=== PATIENT | male | born 1970 | race Caucasian/White ===

== ENCOUNTER 2024-11-14 16:13 | Emergency (ER) | payer OTHER, SELFPAY ==
[2024-11-14 16:22] VITALS: BP 165/95
[2024-11-14 16:50] LABS: % Basophils 1.2 % (0-2); % Eosinophils 1.5 % (0-6); % Immature Granulocytes 0.2 % (0-0.5); % Lymphocytes 23.8 % (20.5-51.1); % Monocytes 8.6 % (1.7-9.3); % Neutrophils 64.7 % (42.2-75.2); Absolute Basophils 0.1 10^3/uL (0-0.2); Absolute Eosinophils 0.1 10^3/uL (0-0.7); Absolute Lymphocytes 1.4 10^3/uL (1.2-3.4); Absolute Monocytes 0.5 10^3/uL (0.1-0.6); Absolute Neutrophils 3.9 10^3/uL (1.4-6.5); Hematocrit 42.2 % (39.0-52.0); Hemoglobin 14.7 g/dL (13.0-18.0); Mean Corp Hgb Conc. 34.8 g/dL (33.0-37.0); Mean Platelet Volume 10.1 fL (7.4-10.4); Nucleated Red Blood Cells % 0 % (-); Platelet Count 302 10^3/uL (130-400); Red Blood Cell Count 4.74 10^6/uL (4.70-6.10); Red Cell Dist. Width 12.5 % (11.5-14.5)
[2024-11-14 17:03] LABS: ALT (SGPT) 49 U/L (0-50); AST (SGOT) 28 U/L (17-59); Albumin 4.9 g/dl (3.5-5.0); Alkaline Phosphatase 83 U/L (38-126); Blood Urea Nitrogen 13 mg/dl (9-20); Calcium 9.8 mg/dl (8.4-10.2); Carbon Dioxide 20 mmol/L (22-30); Chloride 105 mmol/L (98-107); Glucose 92 mg/dl (70-99); Potassium 4.1 mmol/L (3.5-5.1); Sodium 139 mmol/L (135-145); Total Bilirubin 0.7 mg/dl (0.2-1.3); Total Protein 7.4 g/dl (6.3-8.2); eGFR > 60.00
[2024-11-14 17:15] LABS: Troponin I < 0.012 ng/ml
[2024-11-14 17:33] LABS: TSH Reflex To Free T4 1.46 uIU/ml (0.47-4.68)
[2024-11-14 22:35] VITALS: BP 147/98
[2024-11-14 22:37] LABS: Troponin I < 0.012 ng/ml
--- NOTE | 2024-11-14 22:50 | ED.GENMED ---
History of Present Illness
General
Chief Complaint: Chest Pain
Source: patient
Exam Limitations: none
Time Seen by Provider: 11/14/24 22:16
History of Present Illness
History of Present Illness:
This is a 54yo male who presents after he had fell out and lives at lunch with a coworker. He states he had a couple beers and a burger and fries. He states he just started to feel weird and like he needed to drink a soda. He stated he felt shaky
and his palms felt sweaty. He states he really did not have much chest discomfort but just did not feel right. States his hands were sweaty. Synechia persisted. Drank a little bit so to see if it go away. States he then drove home with the
windows down and dropped his coworker often and picker feeder his and came to the hospital. States he is not sure if he had anxiety attack or not. States that yesterday at work he had a lot of stress dealing with a [place]. He took an edible last
night. He is not sure if this is related. He currently feels much better. Denies fevers or palpitations. No syncope. Denies any abdominal symptoms during the event. Not a smoker. Patient states he feels much improved. Still feels little bit
chest tightness across but is not sure if he is anxious. The patient admits that symptoms started at 3:00.
Past History
Past History
ED Past Medical History: Other (Kidney stones) and Other (Anxiety)
ED Past Surgical History: Orthopedic
Social History
Tobacco: Former smoker
Alcohol: Occasional
Family History
Family History: Other (Mother with coronary disease and stents)
Phy Exam
Physical Exam
Physical Exam:
CONSTITUTIONAL Patient alert and oriented to person, place and time. Well-appearing. Vital signs reviewed.
HEAD atraumatic, normocephalic.
EYES eyelids normal to inspection, Extraocular muscles intact, Conjunctiva normal, Sclera normal.
NECK normal range of motion, Trachea midline, no jugular venous distention.
RESPIRATORY CHEST No respiratory distress noted, Chest expansion equal, Bilateral breath sounds clear.
CARDIOVASCULAR regular rate and rhythm, Heart sounds normal.
ABDOMEN abdomen nontender, Bowel sounds normal. No distention.
BACK normal inspection, no obvious deformities
UPPER EXTREMITY range of motion normal, Motor strength normal, no cyanosis, no edema.
LOWER EXTREMITY range of motion normal, Motor strength normal, no cyanosis, no edema.
NEURO Speech normal, No focal motor deficits, Dawson coma scale 15, Memory normal, Cranial Nerves intact to screening exam.
SKIN skin warm, dry, and normal in color.
Scores
Heart Score for Chest Pain Patients
STEMI patient?: No
History: Slightly or Non-Suspicious
ECG: Normal
Age: >45 - <65 years
Risk Factors: 1 or 2 Risk Factors
Troponin: </= Normal Limit
Heart Score for Chest Pain Patients: 2
Heart Score Risk: 2.5% MACE over next 6 weeks
Course
Orders/Labs/Results
Orders:
Orders
11/14/24 16:15
Electrocardiogram (*1) Urgent
Reason for Study: Chest Pain
EKG- Treatment ONCE
11/14/24 16:39
Complete Blood Count/With Diff Urgent
Comprehensive Metabolic Panel Urgent
TSH Reflex To Free T4 Urgent
Troponin I Urgent
11/14/24 20:50
ECG [Electrocardiogram (*1)] Urgent
Reason for Study: Chest Pain
EKG- Treatment ONCE
11/14/24 21:58
CR Chest - 2 Views Urgent
Comment:
Reason For Exam: cp
11/14/24 22:07
Troponin I Urgent
Abnormal Lab Results
11/14/24
16:39
Carbon Dioxide 20 L mmol/L
(22-30)
11/14/24 16:39
11/14/24 16:39
Vital Signs
Initial and Last Documented VS:
Initial Vital Signs
Temp Pulse Resp BP Pulse Ox
98.8 F 88 22 165/95 99
11/14/24 16:22 11/14/24 16:22 11/14/24 16:22 11/14/24 16:22 11/14/24 16:22
Last Documented Vital Signs
Temp Pulse Resp BP Pulse Ox
98.8 F 62 17 147/98 97
11/14/24 16:22 11/14/24 22:35 11/14/24 22:35 11/14/24 22:35 11/14/24 22:35
MDM/Problems Addressed
MDM/Problems Addressed:
Near syncope, chest discomfort, uncontrolled hypertension
*Radiology
Radiology exam reviewed: radiology read reviewed and all reviewed NAD by ED Provider
*Pulse Oximetry
Patient hypoxic: no
*EKG
Interpreted by ED Provider?: Yes
Interpretation: normal
Rate: normal
Rhythm: sinus
[place]: normal axis
QRS Pattern: normal QRS
Ischemia: no ischemia
*Critical Care Note
Total Time (30-74mins, 75-104mins- exclusive of procedures): Not Applicable
Data Reviewed
Source: patient
Prescriptions/Medications Considered But Not Given:
Considered nitroglycerin but no chest pain.
Patient Management
Escalation/DeEscalation of care consider admission/obs:
Symptoms began around 3 PM and despite that troponin x 2 unremarkable. EKG x 2 unremarkable. Is a bit hypertensive. Patient admits he is overweight. I will refer him to the outpatient cardiac follow-up hotline. Long discussion about his blood
pressure. He will follow-up as an outpatient for repeat blood pressure. Also advised to refrain from strenuous exertional activity till cleared by cardiology
ED Attending Note
-
Portions of this chart may have been created with voice recognition software.� Occasional wrong word or��sound alike� substitutions may have occurred due to the inherent limitations of voice recognition software.
Discharge Plan
Departure
Patient Disposition: Home (Routine Discharge)
Date of Disposition: 11/14/24
Time of Disposition: 22:55
Patient with high blood pressure during this ER visit?: Yes
Discharge Problem:
Chest pain, Near syncope
Instructions: Chest Pain CBC Follow Up, BLOOD PRESSURE
Prescriptions:
No Action
escitalopram oxalate 10 MG tablet
10 mg PO DAILY
Referrals:
Gustavo Rios MD [Family Provider] -
Activity Restrictions/Additional Instructions:
Please take 81 mg of aspirin a day. Please avoid strenuous or exertional activity until cleared by cardiology. Please see cardiology in the next 48 hours for reevaluation. Return immediately for worsening pain, shortness breath, palpitations,
sweating, nausea, weakness of any kind, numbness, tingling or any other concerns.
Cardiology has been notified and a follow up appointment has been requested. Someone will call you on the next business day to schedule a follow up appointment.
Interventions
Interventions:
*Risk Screen - Suicide Last Done: 11/14/24 16:22
*General Assessment Last Done: 11/14/24 16:22
*Neglect/Abuse Screening Last Done: 11/14/24 16:22
ED- Fall Risk Assessment Last Done: 11/14/24 22:35
*Nursing Disposition Last Done: 11/14/24 22:58
ED- Cardiac Assessment Last Done: 11/14/24 22:35
Discharge Date and Time
Discharge Date/Time: 11/14/24 22:58
Print Language: PORTUGUESE
== END 2024-11-14 22:58 | disposition home or self-care (01) ==
LOC: EMR 16:13
PROVIDERS: Emergency Medicine; EMERGENCY PHYSICIAN Emergency Medicine; FAMILY PHYSICIAN Internal Medicine
DX: R07.89 Other chest pain (principal); R55 Syncope and collapse; I10 Essential (primary) hypertension; Z87.891 Personal history of nicotine dependence
CPT/HCPCS: 99285; 71046; 80053; 84443; 84484; 85025; 93005

== ENCOUNTER → 2024-12-15 09:07 | Outpatient (REF) | payer OTHER, SELFPAY | LOC: HWRCS 09:07 | PROVIDERS: ATTENDING PHYSICIAN Internal Medicine; FAMILY PHYSICIAN Internal Medicine | DX: R07.9 Chest pain, unspecified (principal) | CPT/HCPCS: 93306 ==

== ENCOUNTER → 2024-12-23 15:02 | Outpatient (REF) | payer OTHER, SELFPAY | LOC: RCS 15:02 | PROVIDERS: ATTENDING PHYSICIAN Internal Medicine; FAMILY PHYSICIAN Internal Medicine | DX: R07.9 Chest pain, unspecified (principal) | CPT/HCPCS: 93017 ==